=== PATIENT | male | born 1980 | race Caucasian/White ===

== ENCOUNTER 2021-05-08 23:07 | Emergency (ER) | payer MEDICAID ==
[~2021-05-08] VITALS: Ht 167.6 cm; Wt 87.1 kg
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
[2021-05-09 00:06] LABS: BASOPHILS # (AUTO) 0.1 K/uL (0.0-0.2); BASOPHILS % (AUTO) 0.3 % (0.0-2.0); HEMATOCRIT 53 % (39-51); HEMOGLOBIN 17.5 g/dL (13.5-17.5); LYMPHOCYTES # (AUTO) 1.2 K/uL (0.8-4.8); MEAN CORPUSCULAR HGB CONC 33 g/dl (31.0-36.0); MEAN CORPUSCULAR VOLUME 87 fL (80-96); MONOCYTES # (AUTO) 1.7 K/uL (0.1-1.30); MONOCYTES % (AUTO) 6.9 % (2.0-12.0); NEUTROPHILS # (AUTO) 21.5 K/uL (1.8-8.9); NEUTROPHILS % (AUTO) 87.8 % (43.0-81.0); PLATELET COUNT (AUTO) 319 K/uL (150-450); RED BLOOD CELL COUNT(AUTO) 6.08 MIL/uL (4.5-6.0); WHITE BLOOD COUNT (AUTO) 24.5 K/uL (4.3-11.0)
[2021-05-09 00:16] LABS: CALCIUM, SERUM 9.6 mg/dL (8.5-10.1); CARBON DIOXIDE 28 mmol/L (21-32); CHLORIDE 105 mmol/L (98-107); CREATININE 1.9 mg/dL (0.6-1.3); GLUCOSE 109 mg/dL (74-106); POTASSIUM 3.7 mmol/L (3.5-5.1); SODIUM SERUM 144 mmol/L (136-145); UREA NITROGEN, BLOOD 19 mg/dL (7-18)
[2021-05-09 00:17] LABS: BILIRUBIN,URINE Negative (NEGATIVE); COLOR,URINE YELLOW (YELLOW); LEUKOCYTE ESTERASE ,URINE Negative (NEGATIVE); NITRITE, URINE Negative (NEGATIVE); PROTEIN,URINE 30 mg/dl (NEGATIVE); UGLUCOSE Negative (NEGATIVE); UROBILINOGEN,URINE 0.2 EU/dL (0.2)
[2021-05-09 00:23] LABS: ALANINE AMINOTRANSFERASE 39 U/L (12-78); ALBUMIN 4.7 g/dL (3.4-5.0); ALCOHOL, BLOOD < 3 mg/dL (0-0); ALKALINE PHOSPHATASE 79 U/L (46-116); ASPARTATE AMINOTRANSFERASE 22 U/L (15-37); BILIRUBIN,DIRECT 0.1 mg/dL (0.0-0.2); BILIRUBIN,TOTAL 0.3 mg/dL (0.2-1.0); TOTAL PROTEIN, SERUM 8.3 g/dL (6.4-8.2)
[2021-05-09 00:26] LABS: BACTERIA,URINE Rare /HPF (None Seen); SQUAMOUS EPITHELIAL CELL,UR Few /HPF (None Seen); WBC,URINE NONE SEEN /HPF (0-3)
[2021-05-09 00:27] LABS: ACETAMINOPHEN < 2 ug/ml (10-30)
--- NOTE | 2021-05-09 01:33 | NUR ---
PT ASLEEP, NO ACUTE DISTRESS NOTED, RESP EVEN AND UNLABORED. CALL LIGHT WITHIN REACH. WILL CONTINUE TO MONITOR PT. 1:1 SITTER AT BEDSIDE TO TAKE PT HOME.
--- NOTE | 2021-05-09 02:41 | NUR ---
MATILDE CONTEHW AT BEDSIDE TO [facility].
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
[2021-05-09] MEDS ORDERED: OLAN2.5T3 PO (02:57)
[2021-05-09] MEDS ORDERED: OLANZAPINE 10 MG VIAL IM ONE ×3 (03:00→03:30)
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
--- NOTE | 2021-05-09 03:07 | NUR ---
PT MEDICATED ORDERED.
[2021-05-09] MEDS ORDERED: LORAZEPAM INJ 2 MG/ML VIAL ONE (03:12)
[2021-05-09] MEDS ORDERED: LORAZEPAM INJ 2 MG/ML VIAL IM ONE (03:30)
--- NOTE | 2021-05-09 10:25 | NUR ---
PT SLEEPING, EASILY AROUSABLE. ON MONITOR W/ STABLE VITALS. WILL CONTINUE TO MONITOR.
--- NOTE | 2021-05-09 10:39 | NUR ---
RE-FAXED CLINICALS TO [facility] INTAKE
--- NOTE | 2021-05-09 12:17 | NUR ---
CALLED SO AMINA INTAKE RJ WILL LET US KNOW
--- NOTE | 2021-05-09 13:28 | NUR ---
BARBARA CALLED PT ACCEPTED TO [facility] [address] [facility] CALL [phone] FOR REPORT
--- NOTE | 2021-05-09 13:37 | NUR ---
[facility] CALLED [facility]ILLIP [facility] WILL BE PICKED UP AT 1500
--- NOTE | 2021-05-09 15:35 | NUR ---
PT IS MEDICALLY AND PSYCH CLEARED BY MATILDE PEREZ. DISCHARGE HOME IN STABLE CONDITION.
[2021-05-09 17:33] VITALS: BP 144/86
== END 2021-05-09 17:34 | disposition home or self-care (01) ==
LOC: ER 23:10
DX: F29 Unspecified psychosis not due to a substance or known physiological condition (principal); F15.129 Other stimulant abuse with intoxication, unspecified; Z20.822 Contact with and (suspected) exposure to COVID-19; Z53.8 Procedure and treatment not carried out for other reasons
CPT/HCPCS: 36415; 80048; 80076; 80143; 80307; 80320; 81001; 85025; 87426; 96372 ×2; 99285; C9803; J2060; J3490; G0480

== ENCOUNTER 2021-05-10 03:20 | Emergency (ER) | payer MEDICAID, OTHER ==
[~2021-05-10] VITALS: Ht 167.6 cm; Wt 87.1 kg
[~2021-05-10 03:20] MED LIST: OLAN2.5T3 PO
--- NOTE | 2021-05-10 03:22 | NUR ---
pt bibra and [employer] c/o chest pain while in senior care. Pt aaox4 breathing evenly and unlabored. Pt skin warm and dry. Pt attached to monitor and pox. MD at bedside. Pt given blanket and call light within reach. Will continue to monitor.
[2021-05-10] MEDS ORDERED: KETOROLAC TROMETHAMINE 15 MG/ML VIAL ONE (03:38)
[2021-05-10] MEDS ORDERED: LORAZEPAM INJ 2 MG/ML VIAL IV ONE (04:00)
[2021-05-10] MEDS ORDERED: ASPIRIN 81 MG TAB.CHEW PO ONE (04:00)
[2021-05-10] MEDS ORDERED: LORAZEPAM INJ 2 MG/ML VIAL ONE ×2 (04:12→06:15)
[2021-05-10] MEDS ORDERED: ASPIRIN 81 MG TAB.CHEW ONE (04:12)
--- NOTE | 2021-05-10 04:14 | NUR ---
iv 1mg ativan changed to IM 1mg ativan
--- NOTE | 2021-05-10 04:15 | NUR ---
xray at bedside
--- NOTE | 2021-05-10 04:50 | NUR ---
lab at bedside
[2021-05-10 05:28] LABS: BASOPHILS # (AUTO) 0.1 K/uL (0.0-0.2); EOSINOPHILS % (AUTO) 0.1 % (0.0-6.0); HEMOGLOBIN 17.5 g/dL (13.5-17.5)
[2021-05-10 05:31] LABS: BASOPHILS % (AUTO) 0.5 % (0.0-2.0); HEMATOCRIT 53 % (39-51); LYMPHOCYTES # (AUTO) 1.6 K/uL (0.8-4.8); LYMPHOCYTES % (AUTO) 7.3 % (20.0-44.0); MEAN CORPUSCULAR HGB CONC 33 g/dl (31.0-36.0); MEAN CORPUSCULAR VOLUME 87 fL (80-96); MONOCYTES # (AUTO) 1.9 K/uL (0.1-1.30); MONOCYTES % (AUTO) 8.6 % (2.0-12.0); NEUTROPHILS % (AUTO) 83.5 % (43.0-81.0); PLATELET COUNT (AUTO) 246 K/uL (150-450); RED BLOOD CELL COUNT(AUTO) 6.06 MIL/uL (4.5-6.0); WHITE BLOOD COUNT (AUTO) 21.6 K/uL (4.3-11.0)
[2021-05-10 05:40] LABS: CALCIUM, SERUM 9.4 mg/dL (8.5-10.1); CARBON DIOXIDE 19 mmol/L (21-32); CHLORIDE 103 mmol/L (98-107); CREATININE 2.8 mg/dL (0.6-1.3); GLUCOSE 97 mg/dL (74-106); POTASSIUM 3.9 mmol/L (3.5-5.1); SODIUM SERUM 140 mmol/L (136-145); UREA NITROGEN, BLOOD 34 mg/dL (7-18)
[2021-05-10 06:07] LABS: BAND % (MANUAL) 4 % (0.0-5.0); EOSINOPHILS % (MANUAL) 0 % (0-4); LYMPHOCYTES % (MANUAL) 9 % (16-48); MONOCYTES % (MANUAL) 10 % (0-11.0); NEUTROPHILS % (MANUAL) 77 (42-76)
[2021-05-10] MEDS ORDERED: diphenhydrAMINE HCL 50 MG/ML VIAL ONE (06:15)
[2021-05-10] MEDS ORDERED: HALOPERIDOL LACTATE INJ 5 MG/ML VIAL ONE (06:15)
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
--- NOTE | 2021-05-10 06:24 | NUR ---
pt placed on 2L O2 for comfort
[2021-05-10] MEDS ORDERED: IV NS 0.9% 1,000 ML IV ONE (06:30)
[2021-05-10] MEDS ORDERED: LORAZEPAM INJ 2 MG/ML VIAL IM ONE (06:30)
[2021-05-10] MEDS ORDERED: HALOPERIDOL LACTATE INJ 5 MG/ML VIAL IM ONE (06:30)
[2021-05-10] MEDS ORDERED: diphenhydrAMINE HCL 50 MG/ML VIAL IM ONE (06:30)
[2021-05-10] MEDS ORDERED: ACETAMINOPHEN 325 MG TABLET PO PRN (07:00)
[2021-05-10] MEDS ORDERED: ONDANSETRON HCL/PF 4 MG/2 ML VIAL IVP PRN (07:00)
[2021-05-10] MEDS ORDERED: Z GUARD REMEDY 2 OZ OINT TP PRN (07:00)
[2021-05-10] MEDS ORDERED: IV LR 1000 ML 1,000 ML IV PRN (07:00)
[2021-05-10] MEDS ORDERED: LORAZEPAM INJ 2 MG/ML VIAL IV PRN (07:00)
--- NOTE | 2021-05-10 07:41 | NUR ---
MOVE SHEET SUBMITTED
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
--- NOTE | 2021-05-10 11:07 | NUR ---
Patient is resting comfortably in bed with eyes closed. Easily aroused. VSS
[2021-05-10] MEDS ORDERED: OLANZAPINE 5 MG TABLET ONE ×2 (11:11→18:48)
[2021-05-10] MEDS: OLANZAPINE 2.5 MG TABLET PO SCH ×2 (11:12→18:49)
--- NOTE | 2021-05-10 13:04 | NUR ---
Patient is resting comfortably in bed with eyes closed. Easily aroused. VSS
--- NOTE | 2021-05-10 16:30 | NUR ---
PT ASLEEP, EASILY AWAKEN BY VERBAL STIMULI AND WILL GO BACK TO SLEEP. DENIES CP, SOB, DIZZINESS, N/V AT THIS TIME. ON TELE, SR. WILL CONT TO MONITOR.
--- NOTE | 2021-05-10 19:00 | NUR ---
Patient is resting comfortably in bed with eyes closed. Easily aroused. VSS
[2021-05-10] MEDS: IV NS 0.9% 1,000 ML IV PRN (19:40)
--- NOTE | 2021-05-10 19:53 | NUR ---
DAISY, MOTHER, CALLED AND WANTED TO PASS SON A MESSAGE
--- NOTE | 2021-05-10 20:16 | NUR ---
Patient is resting comfortably in bed with eyes closed. Easily aroused. VSS
--- NOTE | 2021-05-10 22:03 | NUR ---
PT ASLEEP, EASILY AWAKEN BY VERBAL STIMULI. DENIES CP, SOB, DIZZINESS, N/V AT THIS TIME. ON TELE, SR. NAD NOTED AT THIS TIME. WILL CONT TO MONITOR.
--- NOTE | 2021-05-11 04:35 | NUR ---
RESTING COMFORTABLY. VSS.
[2021-05-11 05:42] LABS: BASOPHILS # (AUTO) 0.1 K/uL (0.0-0.2); EOSINOPHILS % (AUTO) 1.2 % (0.0-6.0); HEMATOCRIT 47 % (39-51); HEMOGLOBIN 15.6 g/dL (13.5-17.5); LYMPHOCYTES # (AUTO) 2.6 K/uL (0.8-4.8); MEAN CORPUSCULAR HGB CONC 33 g/dl (31.0-36.0); MEAN CORPUSCULAR VOLUME 87 fL (80-96); MONOCYTES # (AUTO) 0.9 K/uL (0.1-1.30); MONOCYTES % (AUTO) 7.7 % (2.0-12.0); NEUTROPHILS % (AUTO) 68.1 % (43.0-81.0); PLATELET COUNT (AUTO) 238 K/uL (150-450); RED BLOOD CELL COUNT(AUTO) 5.44 MIL/uL (4.5-6.0); WHITE BLOOD COUNT (AUTO) 11.7 K/uL (4.3-11.0)
[2021-05-11 05:52] LABS: CALCIUM, SERUM 8.3 mg/dL (8.5-10.1); CREATININE 1.2 mg/dL (0.6-1.3); MAGNESIUM 2.5 mg/dL (1.8-2.4); PHOSPHORUS 3.3 mg/dL (2.5-4.9)
[2021-05-11 06:09] LABS: THYROID STIMULATING HORMONE 1.251 uIU/mL (0.358-3.74)
--- NOTE | 2021-05-11 06:49 | NUR ---
Patient is awake and alert to self, day, and place. Pt eating and drinking.
[2021-05-11 07:43] LABS: LYMPHOCYTES % (MANUAL) 25 % (16-48); MONOCYTES % (MANUAL) 6 % (0-11.0); NEUTROPHILS % (MANUAL) 69 (42-76)
--- NOTE | 2021-05-11 07:44 | NUR ---
ASSESSED PT ON BED ASLEEP EASILY AROUSABLE, NOT IN RESPIRATORY DISTRESS, V/S STABLE, KEPT RESTED AND COMFORTABLE. WILL CONTINUE TO MONITOR.
--- NOTE | 2021-05-11 07:49 | NUR ---
ckmb 16.2
[2021-05-11] MEDS: IV NS 0.9% 1,000 ML IV PRN ×3 (07:58→18:00)
--- NOTE | 2021-05-11 10:20 | NUR ---
URINE SPECIMEN COLLECTED AND SENT TO LAB.
--- NOTE | 2021-05-11 10:24 | NUR ---
PT IS WHEELED TO CT SCAN VIA [facility].
--- NOTE | 2021-05-11 13:00 | NUR ---
LUNCH TRAY PROVIDED.
[2021-05-11] MEDS: OLANZAPINE 2.5 MG TABLET PO SCH (17:57)
--- NOTE | 2021-05-11 18:01 | NUR ---
ASSESSED PT ON BED ASLEEP EASILY AROUSABLE, NOT IN RESPIRATORY DISTRESS, V/S STABLE, KEPT RESTED AND COMFORTABLE. WILL CONTINUE TO MONITOR.
[2021-05-11] MEDS ORDERED: ACETAMINOPHEN 325 MG TABLET ONE (19:17)
--- NOTE | 2021-05-12 01:21 | NUR ---
RESTING IN BED, VSS.
--- NOTE | 2021-05-12 04:56 | NUR ---
BREAKFAST SERVER AT BEDSIDE
[2021-05-12 05:15] LABS: CALCIUM, SERUM 8.1 mg/dL (8.5-10.1); CREATININE 0.8 mg/dL (0.6-1.3); MAGNESIUM 2.1 mg/dL (1.8-2.4); PHOSPHORUS 2.7 mg/dL (2.5-4.9); POTASSIUM 4.1 mmol/L (3.5-5.1)
[2021-05-12 05:21] LABS: BASOPHILS # (AUTO) 0.1 K/uL (0.0-0.2); BASOPHILS % (AUTO) 1.2 % (0.0-2.0); EOSINOPHILS % (AUTO) 2.5 % (0.0-6.0); HEMATOCRIT 39 % (39-51); HEMOGLOBIN 12.9 g/dL (13.5-17.5); LYMPHOCYTES # (AUTO) 2.7 K/uL (0.8-4.8); LYMPHOCYTES % (AUTO) 36.7 % (20.0-44.0); MEAN CORPUSCULAR HGB CONC 34 g/dl (31.0-36.0); MEAN CORPUSCULAR VOLUME 87 fL (80-96); MONOCYTES # (AUTO) 0.9 K/uL (0.1-1.30); MONOCYTES % (AUTO) 11.5 % (2.0-12.0); NEUTROPHILS # (AUTO) 3.6 K/uL (1.8-8.9); NEUTROPHILS % (AUTO) 48.1 % (43.0-81.0); PLATELET COUNT (AUTO) 200 K/uL (150-450); RED BLOOD CELL COUNT(AUTO) 4.44 MIL/uL (4.5-6.0); WHITE BLOOD COUNT (AUTO) 7.4 K/uL (4.3-11.0)
--- NOTE | 2021-05-12 06:59 | NUR ---
PT OK TO BE DISCHARGED PER MORTEZA PERALTA DNP. [employer] CONTACTED.
--- NOTE | 2021-05-12 08:33 | NUR ---
PT MEDICALLY CLEARED. DISCHARGE TO [facility] IN STABLE CONDITION.
[2021-05-12 08:34] VITALS: BP 121/72
== END 2021-05-12 08:36 ==
LOC: ER 03:25 → TRANSITION 10:44 → UNDOADMOB 10:44
DX: N17.9 Acute kidney failure, unspecified (principal); M62.82 Rhabdomyolysis; G92 Toxic encephalopathy; Z20.822 Contact with and (suspected) exposure to COVID-19; D72.829 Elevated white blood cell count, unspecified; R07.9 Chest pain, unspecified; F20.9 Schizophrenia, unspecified; F15.10 Other stimulant abuse, uncomplicated; F12.10 Cannabis abuse, uncomplicated; R31.9 Hematuria, unspecified
CPT/HCPCS: 36415 ×3; 70450; 71045; 80048 ×3; 80061; 80307; 80320; 82550 ×3; 82553 ×2; 83036; 83735 ×2; 84100 ×2; 84443; 84484 ×4; 85007 ×2; 85025 ×3; 87081; 87426; 93005; 96361 ×2; 96372 ×2; 96374; 99291; C9803; J1200; J1630; J2060 ×2; J7030 ×4; J7120; U0003; G0480; J1885